=== PATIENT | female | born 1965 | race American Indian/Alaskan Native ===

== ENCOUNTER 2018-08-10 15:32 | Inpatient (IN) | payer BC, MEDICAID ==
[2018-08-10] MEDS ORDERED: Morphine 4 mg/ml ISec IVP STA (17:20)
[2018-08-10] MEDS ORDERED: Dextrose 5%/0.9% NS 1,000 ML IV SCH (17:30)
[2018-08-10 17:57] LABS: PH,URINE 6.5 (4.7-8.0); URINE BILIRUBIN NEGATIVE (NEGATIVE); URINE BLOOD NEGATIVE (NEGATIVE); URINE GLUCOSE (UA) NEGATIVE (NEGATIVE); URINE LEUKOCYTE ESTERASE NEGATIVE Leu/uL (NEGATIVE); URINE PROTEIN NEGATIVE mg/dL (<30 mg/dL); URINE UROBILINOGEN 0.2 E.U./dL (<1 E.U./dL)
--- NOTE | 2018-08-10 17:57 | ED PDOC ---
Arrival/HPI - General Chief Complaint: Syncope Time Seen by Provider: 08/10/18 15:51 Historian: Patient - History of Present Illness Narrative History of Present Illness (Text): 08/10/18 17:25 62 year old female with a past medical history of diabetes, bariatric surgery (01/07), and laparoscopic assisted vaginal hysterectomy 3 weeks ago d/t endometrial cancer, presenting s/p syncopal episodes that occurred 4 days. Patient lives in [place] and was traveling by bus to [place] to stay with family, when she felt lightheaded and dizzy and "started seeing spots" at bus station. Patient was standing and was able to sit down, did not have LOC and stood up a couple minutes later. Before getting on the bus patient felt dizzy again and lost consciousness and does not have much memory around the accident. She thinks that she fell and hit her right cheek, right knee and abdomen. At the time, patient denied EMT care and kept traveling. Patient now complains of "cramping" suprapubic abdominal pain and pressure that is worse when she coughs/sneezes. Pt states pain was improving s/p hysterectomy but has worsened since the fall. Pt was examined by gynecological oncologist 1 week ago and did not have severe abdominal pain. Pt also complains of BELTRE since the fall, diarrhea, and R knee pain. Pt is now unable to bend right knee secondary to pain. Pt is on glipizide and metformin daily, and uses short acting and long acting insulin prn for her diabetes. Pt measures her glucose 2x/day and has been having hypoglycemic episodes measuring from 45-70. Pt states that her diabetes is well controlled after her bariatric surgery and weight loss of 110 lbs, last A1C 2 months ago: 5.9. Pt denies vaginal bleeding, redness or warmth of incision sites, nausea, vomiting, chest pain, calf pain, swelling, dyspnea. Pt denies history of anemia, heart murmurs, CVD, previous syncopal episodes. Time/Duration: < week Symptom Onset: Gradual Symptom Course: Unchanged Activities at Onset: Light Context: Home Past Medical History - Provider Review Nursing Documentation Reviewed: Yes - Endocrine/Metabolic Hx Diabetes Mellitus Type 2: Yes - Psychiatric Hx Substance Use: No - Surgical History Hx Gastric Bypass Surgery: Yes (12/2017) Hx Hysterectomy: Yes (06/2018) Family/Social History - Physician Review Nursing Documentation Reviewed: Yes Family/Social History: Unknown Family HX Smoking Status: Unknown If Ever Smoked Hx Alcohol Use: No Hx Substance Use: No Allergies/Home Meds Allergies/Adverse Reactions: Allergies No Known Allergies Allergy (Verified 08/10/18 16:00) Home Medications: Home Meds Medication Instructions Recorded Confirmed Albuterol HFA [Ventolin HFA 90 1 puff IH PRN PRN 08/10/18 08/10/18 mcg/actuation (8 g)] Atorvastatin [Lipitor] 40 mg PO DAILY 08/10/18 08/10/18 Esomeprazole Magnesium [Nexium] 40 mg PO DAILY 08/10/18 08/10/18 FLUoxetine [Fluoxetine HCl] 40 mg PO DAILY 08/10/18 08/10/18 GlipiZIDE [Glipizide] 10 mg PO DAILY 08/10/18 08/10/18 Insulin Glargine,Hum.rec.anlog 5 - 10 unit SQ PRN PRN 08/10/18 08/10/18 [Basaglar Kwikpen U-100] Insulin Glulisine [Apidra] 1 - 4 unit SQ PRN PRN 08/10/18 08/10/18 Lamotrigine 100 mg PO DAILY 08/10/18 08/10/18 Lisinopril [Zestril] 20 mg PO DAILY 08/10/18 08/10/18 Meloxicam [Mobic] 15 mg PO DAILY 08/10/18 08/10/18 MetFORMIN [glucOPHAGE] 1,000 mg PO DAILY 08/10/18 08/10/18 Misoprostol 200 mcg PO QID 08/10/18 08/10/18 Pregabalin [Lyrica] 225 mg PO BID 08/10/18 08/10/18 Sucralfate [Carafate] 1 gm PO TID 08/10/18 08/10/18 Review of Systems - Physician Review All systems were reviewed & negative as marked: Yes - Review of Systems Constitutional: absent: Fevers Respiratory: absent: SOB, Cough Cardiovascular: absent: Chest Pain, YUSUF Gastrointestinal: Abdominal Pain, Diarrhea. absent: Nausea, Vomiting Musculoskeletal: Arthralgias (right knee pain). absent: Back Pain, Neck Pain Skin: absent: Rash Neurological: Headache. absent: Dizziness Physical Exam Vital Signs Reviewed: Yes Vital Signs Temp Pulse Resp BP Pulse Ox 08/10/18 16:05 98.2 F 84 18 112/76 100 Temperature: Afebrile Blood Pressure: Normal Pulse: Regular Respiratory Rate: Normal Appearance: Positive for: Well-Appearing, Non-Toxic, Comfortable Pain Distress: None Mental Status: Positive for: Alert and Oriented X 3 Finger Stick Blood Glucose: 71 - Systems Exam Head: Present: Atraumatic, Normocephalic Pupils: Present: PERRL Extroacular Muscles: Present: EOMI Conjunctiva: Present: Normal Neck: Present: Normal Range of Motion Respiratory/Chest: Present: Clear to Auscultation, Good Air Exchange. No: Respiratory Distress, Accessory Muscle Use Cardiovascular: Present: Regular Rate and Rhythm, Normal S1, S2. No: Murmurs Abdomen: Present: Tenderness (Diffuse abdominal tenderness. Well healing surgical scars from lasproscopy noted on upper abdomen. No redness or swelling to the area.). No: Distention, Peritoneal Signs Back: Present: Normal Inspection Upper Extremity: Present: Normal Inspection. No: Cyanosis, Edema Lower Extremity: Present: Normal Inspection. No: Edema Neurological: Present: GCS=15, CN II-XII Intact, Speech Normal Skin: Present: Warm, Dry, Normal Color. No: Rashes Psychiatric: Present: Alert, Oriented x 3, Normal Insight, Normal Concentration Medical Decision Making ED Course and Treatment: 08/10/18 17:18 Impression: 52 year old female presents to the Emergency department complaining of abdominal pain s/p syncopal episode 4 days ago. Plan: -- CT of Abdomen/Pelvis -- CT of Head -- EKG -- Labs -- Chest X-ray -- Dextrose -- Morphine -- Zofran -- Urine Culture -- X-ray of bilateral knees -- Urinalysis -- Reassess and disposition Prior Visits: Notes and results from previous visits were reviewed. Progress Notes: FS : 71. EKG : NSR at 83 bpm, with no acute ST changes Chest X-ray : NAD XR b/l knees : +DJD, no fracture CT head : no acute intracranial abnormality, as per [facility]. CT Abdomen/Pelvis CT w/ IV contrast: Post operative changes within the abdomen and pelvis. No suspicious masses or lymphadenopathy or free fluid collection. Status post cholecystectomy. Status post hysterectomy. Clinical correlation advised, as per [facility]. Labs reviewed : d-dimer 265, trop (-), k 3.5, Urinalysis (-). Case d/w Dr. Menendez, agrees with plan for observation for syncope and CTA chest for tomorrow to r/o PE, request patient be given prophylactic dose of lovenox SC. Lovenox SC ordered. Diagnostic results d/w the patient. Advised for the need for further observation for syncope and for CTA chest tomorrow, which the patient agrees to. On reevaluation, patient reports no CP, no shortness of breath, no worsening in abdominal pain. On exam, patient remains awake alert and oriented 3 in no acute distress. - RAD Interpretation Narrative RAD Interpretations (Text): 08/10/18 19:48 CT of Abdomen/Pelvis reviewed by radiologist, shows: FINDINGS: LUNG BASES: The lung bases appear clear. No pleural effusions are seen. LIVER: Unremarkable. GALLBLADDER AND BILE DUCTS: Gallbladder has been surgically removed. PANCREAS: Fatty infiltration. SPLEEN: Unremarkable. ADRENAL GLANDS: Unremarkable. KIDNEYS, URETERS, AND BLADDER: The kidneys appear within normal limits. There is no hydronephrosis or hydroureter. No urinary calculi are seen. STOMACH AND BOWEL: Postsurgical changes are suspected at the region of the stomach with suture material present. There is no bowel obstruction identified. There is no radi ologic evidence of inflammatory bowel disease. APPENDIX: No evidence of acute appendicitis on CT examination. PERITONEUM: No free fluid. No free air. LYMPH NODES: No lymphadenopathy is evident. VASCULATURE: No evidence of abdominal aortic aneurysm. BONES: No aggressive appearing osseous lesion. No acute osseous pathology evident. Hypertrophic and degenerative changes present lumbar spine. The uterus has been surgically removed and a minimal postsurgical changes are seen at the midline of the abdomen. IMPRESSION: Postoperative changes within the abdomen and pelvis. No suspicious mass or lymphadenopathy or free fluid collection. Status post cholecystectomy. Status post hysterectomy. Clinical correlation advised. 08/10/18 19:49 CT of head reviewed by radiologist, shows: FINDINGS: BRAIN No acute intraparenchymal hemorrhage. No mass lesion. No CT evidence for acute territorial infarct. No midline shift or extra-axial collections. VENTRICLES: No hydrocephalus. ORBITS: The orbits are unremarkable. SINUSES AND MASTOIDS: The paranasal sinuses and mastoid air cells are clear. BONES: Small separate ossific density is seen adjacent to the inner table of the skull in the right parietal region and this appears chronic in nature. SOFT TISSUES: Unremarkable. IMPRESSION: No acute intracranial abnormality. Clinical correlation advised. Radiology Orders: 08/10/18 17:19 CHEST ONE VIEW [RAD] Stat KNEES BILATERAL [RAD] Stat 08/10/18 17:20 HEAD W/O CONTRAST [CT] Stat 08/10/18 17:22 ABD & PELVIS IV CONTRAST ONLY [CT] Stat Banquet Supervisor: Radiologist - Medication Orders Current Medication Orders: Dextrose/Sodium Chloride (Dextrose 5%/0.9% Ns 1000 Ml) 1,000 mls @ 200 mls/hr IV .Q5H SYDNEY Morphine Sulfate (Morphine) 4 mg IVP STAT STA Stop: 08/10/18 17:21 Ondansetron HCl (Zofran Inj) 4 mg IVP STAT STA Stop: 08/10/18 17:21 - PA / EXHIBIT SPECIALIST / Resident Statement MD/DO has reviewed & agrees with the documentation as recorded. - Scribe Statement The provider has reviewed the documentation as recorded by the Scribe Shalonda Weathers. All medical record entries made by the Scribe were at my direction and personally dictated by me. I have reviewed the chart and agree that the record accurately reflects my personal performance of the history, physical exam, medical decision making, and the department course for this patient. I have also personally directed, reviewed, and agree with the discharge instructions and disposition. Disposition/Present on Arrival - Present on Arrival Any Indicators Present on Arrival: No History of DVT/PE: No History of Uncontrolled Diabetes: No Urinary Catheter: No History of Decub. Ulcer: No History Surgical Site Infection Following: None - Disposition Have Diagnosis and Disposition been Completed?: Yes Diagnosis: Syncope, Abdominal pain Disposition: HOSPITALIZED Disposition Time: 19:45 Patient Plan: Observation Patient Problems: Current Active Problems Problem Status Onset Abdominal pain Acute Syncope Acute Condition: STABLE Discharge Instructions (ExitCare): Syncope (ED) Forms: Pushkart (Danish)
[2018-08-10 18:02] LABS: URINE APPEARANCE CLEAR (CLEAR); URINE COLOR YELLOW (YELLOW)
[2018-08-10 18:05] LABS: BASO # 0.02 K/mm3 (0.0-2.0); BASO % 0.2 % (0.0-3.0); EOS # 0.4 (0.0-0.7); EOS % 4.2 % (1.5-5.0); GRAN # 2.98 (1.4-6.5); GRAN % 36.1 % (50.0-68.0); HEMOGLOBIN 12.2 g/dL (12.0-16.0); LYMPH # 4.4 (1.2-3.4); LYMPH % 53.2 % (22.0-35.0); MEAN CELL VOLUME 90.3 fl (80.0-105.0); MEAN CORPUSCULAR HEMOGLOBIN 28.8 pg (25.0-35.0); MEAN CORPUSCULAR HGB CONC 31.9 g/dl (31.0-37.0); MEAN PLATELET VOLUME 9.7 fl (7.0-11.0); MONO # 0.5 (0.1-0.6); MONO % 6.3 % (1.0-6.0); RBC 4.24 10^6/uL (3.5-6.1); RED CELL DISTRIBUTION WIDTH 13.9 % (11.5-14.5); WHITE BLOOD COUNT 8.3 10^3/uL (4.5-11.0)
[2018-08-10 18:10] LABS: INR 1.07; PARTIAL THROMBOPLASTIN TIME 32.8 Seconds (25.1-36.5); PROTHROMBIN TIME 12.2 SECONDS (9.4-12.5)
[2018-08-10 18:20] LABS: TROPONIN I < 0.01 ng/mL
[2018-08-10 18:30] LABS: ALB/GLOB RATIO 1.1 (1.1-1.8); ALBUMIN 3.9 g/dL (3.0-4.8); ALT/SGPT 50 U/L (7-56); AST/SGOT 48 U/L (14-36); BLOOD UREA NITROGEN 11 mg/dL (7-21); CALCIUM 8.9 mg/dL (8.4-10.5); GFR NON-AFRICAN AMERICAN > 60
[2018-08-10] MEDS ORDERED: Enoxaparin 120 mg Syringe SC STA (19:55)
[2018-08-10] MEDS ORDERED: Enoxaparin 40 mg Syringe SC SCH (21:00)
[2018-08-10] MEDS ORDERED: Potassium Chloride 20 mEq ER Tab PO STA (21:32)
[2018-08-10 21:36] LABS: URIC ACID 4.7 mg/dL (2.5-6.2)
[2018-08-10 21:50] LABS: BARBITURATES, UR NEGATIVE (NEGATIVE); BENZODIAZEPINES, UR NEGATIVE (NEGATIVE); OPIATES, UR NEGATIVE (NEGATIVE); PHENCYCLIDINE, UR NEGATIVE (NEGATIVE)
[2018-08-10 22:10] LABS: FREE T4 1.08 ng/dL (0.78-2.19); T4 9.6 ug/dL (5.5-11.0)
[2018-08-11 00:41] VITALS: BMI 35.9
[2018-08-11 01:32] LABS: TROPONIN I < 0.01 ng/mL
[2018-08-11 04:53] LABS: BASO # 0.02 K/mm3 (0.0-2.0); BASO % 0.3 % (0.0-3.0); EOS # 0.3 (0.0-0.7); EOS % 4.2 % (1.5-5.0); GRAN # 2.55 (1.4-6.5); GRAN % 33.7 % (50.0-68.0); HEMOGLOBIN 11.8 g/dL (12.0-16.0); LYMPH # 4.3 (1.2-3.4); LYMPH % 56.4 % (22.0-35.0); MEAN CELL VOLUME 90.1 fl (80.0-105.0); MEAN CORPUSCULAR HEMOGLOBIN 29.1 pg (25.0-35.0); MEAN CORPUSCULAR HGB CONC 32.3 g/dl (31.0-37.0); MEAN PLATELET VOLUME 9.4 fl (7.0-11.0); MONO # 0.4 (0.1-0.6); MONO % 5.4 % (1.0-6.0); RBC 4.05 10^6/uL (3.5-6.1); WHITE BLOOD COUNT 7.6 10^3/uL (4.5-11.0)
[2018-08-11 05:05] LABS: ALBUMIN 3.4 g/dL (3.0-4.8); ALT/SGPT 41 U/L (7-56); AST/SGOT 41 U/L (14-36); BILIRUBIN,DIRECT 0.2 mg/dL (0.0-0.4); BLOOD UREA NITROGEN 9 mg/dL (7-21); CALCIUM 9.1 mg/dL (8.4-10.5); GFR NON-AFRICAN AMERICAN > 60; HDL CHOLESTEROL 36 mg/dL (29-60)
[2018-08-11 05:16] LABS: LDL CHOLESTEROL 61 mg/dL (0-129); TROPONIN I < 0.01 ng/mL
[2018-08-11] MEDS: Sodium Chloride 0.45% 1,000 ML IV SCH (06:26)
[2018-08-11] MEDS: Pantoprazole 40 mg EC Tab PO SCH (06:29)
--- NOTE | 2018-08-11 07:37 | HP ---
DATE OF EXAM: 08/10/2018 HISTORY OF PRESENT ILLNESS: The patient is a 52-year-old female who is a resident of [place], is visiting [place] family members. The patient stated that the patient passed out on Friday while traveling from [place] to [place]. The patient passed out on a bus station while on her way to [place], but the patient refused to go to the emergency room at this time. The patient presented since have been visiting her family members in [facility]. The patient presented with complaints of abdominal pain, right hip pain, and right lower extremity pain, and also complained of dizziness, and also complained of syncopal episode 4 to 5 days ago on Friday at a bus station. The patient also reports that pain is described at 8/10 in the abdomen area, in the right hip, and the right knee area. The patient also states that a few weeks ago, the patient had abdominal hysterectomy for diagnosis of endometrial carcinoma. CODE STATUS: Full code. LIVING WILL ADVANCE DIRECTIVE: None. ALLERGIES: NONE. HEIGHT: 5 feet 9 inches. WEIGHT: 243. BODY MASS INDEX: 36. PAST MEDICAL AND SURGICAL HISTORY: History of type 2 diabetes mellitus, history of degenerative joint disease, history of hypertension, history of questionable depression versus history of hyperlipidemia. Past medical history is also significant for obesity; status post gastric bypass surgery in 12/2017, history of laparoscopic abdominal hysterectomy in 06/2018, both surgeries were done in [place]; history of endometrial carcinoma. The patient's past medical history is also significant for history of post bariatric and post geriatric surgery weight loss of more than 110 pound, history of insulin requiring diabetes mellitus, history of gastritis, history of questionable neuropathy. PHYSICAL EXAMINATION: GENERAL: The patient is seen in stretcher #13. The patient was completely alert, awake, responsive. VITAL SIGNS: T-max 98.2, heart rate 84 to 91; telemetry shows normal sinus rhythm, blood pressure 112/76 to 130/89, respirations 18, O2 sat 99% to 100%, the patient is seen lying on the stretcher. HEENT: Head examination normocephalic, atraumatic. HEENT examination shows pinkish pale conjunctivae. Dry oral mucosa. No neck rigidity. CHEST: Kyphosis. LUNGS: Examination shows no audible crackle, rales or wheezing. CARDIOVASCULAR: S1, S2, regular rhythm. Questionable soft systolic murmur, left sternal border, right second intercostal space, left second intercostal space. ABDOMEN: Soft. Positive diffuse voluntary guarding noted. The patient is holding my hand when I am trying to palpate the abdomen. The patient does have positive bowel sound on auscultation. The patient does have multiple laparoscopic surgical scars in the upper and mid and lower abdomen; positive surgical scar of hysterectomy noted. GENITALIA: Female. RECTAL: Deferred. The patient is complaining of right hip, right knee, and right lower extremity pain. No palpable hepatosplenomegaly noted. MUSCULOSKELETAL: Shows a body mass index of 36. NEUROLOGIC: The patient is alert, awake, oriented times 3. The patient was also observed ambulating in the emergency room holding area and the patient ambulated independently from the stretcher to the bathroom. Motor strength is 5/5. There was no neurological deficit noted at this time. DIAGNOSTICS: CBC shows WBC 8.3, hemoglobin and hematocrit of 12.2 and 38.3, platelet 289,000. PT/PTT 12.2/32.8, D-dimer 265. Sodium 142, potassium 3.5, chloride 107, CO2 27, anion gap 12, BUN 11, creatinine 0.7. GFR greater than 60, glucose 90, calcium 8.9, magnesium 2.0. AST 48. Troponin is negative. Urine pH 6.5, specific gravity 1.020, leukocyte esterase negative. The patient had an EKG done, chest x-ray, knee x-ray, head CT, abdominopelvic CT was done in the emergency room, the results of which are reviewed in the ER physician evaluation. EKG shows normal sinus rhythm, questionable left axis deviation, nonspecific ST changes. No old EKG available for comparison. CAT scan of the abdomen and pelvis was reviewed. CAT scan of the head results were reviewed. IMPRESSION: 1. Syncopal episodes times two to four. 2. Abdominal pain. 3. Dizziness. 4. Right hip and knee pain. 5. Status post bariatric surgery in 12/2017. 6. Elevated D-dimer, etiology undetermined. 7. Status post fall. 8. Abdominal pain, hip pain, right lower extremity pain, secondary to fall versus contusion. 9. Degenerative joint disease of the knees. 10. Hepatic steatosis with fatty infiltration of the liver. 11. Postoperative changes of the gastric bypass and bariatric surgery. 12. Degenerative joint disease of the lumbar spine. 13. Hysterectomy with postsurgical changes. 14. Status post cholecystectomy. 15. Right parietal region chronic ossific density. 16. Questionable left axis deviation. 17. Questionable age indeterminate inferior infarct. 18. Recurrent syncopal episode, etiology undetermined. 19. History of gastritis, status post gastric bypass surgery. 20. Diabetic neuropathy. 21. Insulin-requiring diabetes mellitus. 22. Questionable depression. 23. History of hyperlipidemia. 24. Hypertension. 25. Lymphocytosis. 26. Hypokalemia. PLAN: At this time, the patient will be admitted to Telemetry. The patient has been ordered thyroid panel, drug screen, repeat cardiac enzymes, CBC, CMP, LFT, magnesium. The patient has been ordered serial troponin, ESR; urine culture ordered to by the emergency room; hip and pelvic x-rays and lumbar spine x-rays ordered. The patient's current consultation are Neurology and Cardiology. Lyme titers and RPR ordered. The patient is started on Carafate 1 g three times a day, Colace 100 mg three times a day, Ecotrin 81 mg daily, Humalog medium dose sliding scale coverage. The patient has been supplemented with potassium 40 mEq, the patient is resumed on Lamictal 100 mg daily, Lipitor 40 mg daily. The patient is given a dose of Lovenox 110 mg in the emergency room by the ER staff. The patient is started on Lovenox 40 subcu daily from tomorrow. The patient is on Lyrica 225 mg twice a day, Mobic 15 mg daily, the patient received a dose of morphine 4 mg IV, the patient is on Protonix 40 mg daily, Prozac 40 mg daily, lisinopril 20 mg daily, Zofran 4 mg IV every 4 hours p.r.n. The patient is ordered carotid Doppler, MRI, MRA of the brain, EEG, echo with Doppler ordered. Consistent carbohydrate diet ordered. The patient is put on neuro checks, head of the bed at 30 degrees, out of bed with assistance. Physical therapy and occupational therapy ordered. At present, the patient was seen in the emergency room bed 15; the patient seen and evaluated, examined. All detail discussed and explained to the patient. The patient was explained about the details of her diagnoses, tests results. Need for further diagnostic and therapeutic intervention was extensively explained to the patient at length and all questions concerned answered to her satisfaction. At present, the patient is going to be admitted to telemetry for further treatment plan and management. Dictated and electronically signed, not read. Dustin Menendez MD
[2018-08-11] MEDS: Insulin Lispro (humaLOG) MEDIUM Coverage SC SCH ×3 (08:00→16:59)
[2018-08-11] MEDS ORDERED: Gadodiamide 287 MG/ML VIAL (20ML) IV ONE (08:44)
--- NOTE | 2018-08-11 09:18 | CT ---
Date of service: 08/10/2018 PROCEDURE: CT HEAD WITHOUT CONTRAST. HISTORY: syncope COMPARISON: None available. TECHNIQUE: Axial computed tomography images were obtained through the head/brain without intravenous contrast. Radiation dose: Total exam DLP = 899.08 mGy-cm. This CT exam was performed using one or more of the following dose reduction techniques: Automated exposure control, adjustment of the mA and/or kV according to patient size, and/or use of iterative reconstruction technique. FINDINGS: HEMORRHAGE: No intracranial hemorrhage. BRAIN: No mass effect or edema. No atrophy or chronic microvascular ischemic changes. VENTRICLES: Unremarkable. No hydrocephalus. CALVARIUM: Unremarkable. PARANASAL SINUSES: Unremarkable as visualized. No significant inflammatory changes. MASTOID AIR CELLS: Unremarkable as visualized. No inflammatory changes. OTHER FINDINGS: The report concurs with the preliminary [facility] report IMPRESSION: No acute intracranial findings
--- NOTE | 2018-08-11 09:20 | RAD ---
Date of service: 08/10/2018 PROCEDURE: BILATERAL HIPS WITH PELVIS RADIOGRAPHS HISTORY: PAIN/SYNCOPE COMPARISON: No prior comparison available. TECHNIQUE: Frontal views of the pelvis and bilateral hip joints been submitted with bilateral hip frog-leg lateral projections as well. FINDINGS: No acute fracture or dislocation of the bilateral hip joints is appreciated. No destructive bony lesion appreciated throughout. No fracture of the pelvic ring is identified either. There is advanced degenerative joint disease of lateral hip joints including articular cortical sclerosis and osteophyte development and limited subchondral cyst formation as well. Mild degenerative sacroiliac joint changes are identified with the sacrum otherwise intact. Pubic symphysis appears intact swells remaining pubic bones. Incidental advanced facet degenerative changes seen at the inferior lumbar spine and excreted iodinated contrast material is identified mildly distending the urinary bladder. IMPRESSION: No acute fracture dislocation throughout the bilateral hip joints as well as the pelvic ring. Relatively advanced osteoarthritis seen the bilateral hip joints symmetrically, mild at the bilateral sacroiliac joints.
--- NOTE | 2018-08-11 09:23 | CT ---
Date of service: 08/10/2018 PROCEDURE: CT Abdomen and Pelvis with contrast HISTORY: pain, s/p hysterectomy COMPARISON: None. TECHNIQUE: Contrast dose: 141 cc of Visipaque Radiation dose: Total exam DLP = 1265.2 mGy-cm. This CT exam was performed using one or more of the following dose reduction techniques: Automated exposure control, adjustment of the mA and/or kV according to patient size, and/or use of iterative reconstruction technique. FINDINGS: LOWER THORAX: Unremarkable. LIVER: Unremarkable. No gross lesion or ductal dilatation. Fatty infiltration of the liver GALLBLADDER AND BILE DUCTS: Gallbladder removed PANCREAS: Pancreatic atrophy with fatty replacement SPLEEN: Unremarkable. ADRENALS: Unremarkable. No mass. KIDNEYS AND URETERS: Unremarkable. No hydronephrosis. No solid mass. VASCULATURE: Unremarkable. No aortic aneurysm. No aortic atherosclerotic calcification or mural plaque present. BOWEL: Unremarkable. No obstruction. No gross mural thickening. Suture line in the stomach APPENDIX: Normal appendix. PERITONEUM: Unremarkable. No free fluid. No free air. LYMPH NODES: Unremarkable. No enlarged lymph nodes. BLADDER: Unremarkable. REPRODUCTIVE: Hysterectomy BONES: No acute fracture. OTHER FINDINGS: The report concurs with the preliminary [facility] report IMPRESSION: Unremarkable contrast enhanced CT of the abdomen and pelvis.
--- NOTE | 2018-08-11 09:25 | RAD ---
Date of service: 08/10/2018 PROCEDURE: Radiographs of the Lumbar Spine. HISTORY: SYNCOPE/FALL COMPARISON: No prior. FINDINGS: BONES: Normal lumbar curvature. No fracture or spondylolisthesis appreciable. Mild to moderate multilevel spondylosis appreciated diffusely. No definite destructive bony lesion identified. Multilevel facet joint degenerative changes are appreciated increasingly from superior to inferior levels. No definite destructive bony lesion appreciated. Incidental note is made of excreted iodinated contrast material at the bilateral renal collecting systems, ureters and urinary bladder. Surgical clips identified in the right upper quadrant abdomen. DISC SPACES: As above. OTHER FINDINGS: None. IMPRESSION: No definite acute fracture or spondylolisthesis identified. Multilevel degenerative disease appears [id number] severity with multilevel facet joint degenerative arthropathy also present.
--- NOTE | 2018-08-11 09:36 | CARD ---
APPROVED REPORT Date of service: 08/10/2018 EKG Measurement Heart [id number] <Conclusion> Normal sinus rhythm Low voltage QRS Inferior infarct, age undetermined PRWP V - 6, probably lead placement
[2018-08-11] MEDS ORDERED: PREGABALIN 225 MG PO SCH (10:00)
--- NOTE | 2018-08-11 10:35 | RAD ---
Date of service: 08/10/2018 PROCEDURE: CHEST RADIOGRAPH, 1 VIEW HISTORY: pain COMPARISON: None available. FINDINGS: LUNGS: Clear. PLEURA: No pneumothorax or pleural fluid seen. CARDIOVASCULAR: No aortic atherosclerotic calcification present. Normal. OSSEOUS STRUCTURES: No significant abnormalities. VISUALIZED UPPER ABDOMEN: Normal. OTHER FINDINGS: None. IMPRESSION: No active disease.
[2018-08-11] MEDS: Enoxaparin 40 mg Syringe SC SCH ×2 (10:40→17:59)
--- NOTE | 2018-08-11 10:55 | PN ---
DATE: 08/11/2018 LOCATION: The patient is in room 572 bed one. SUBJECTIVE: Though patient was advised by the ER staff to be admitted to Telemetry because of syncope, but the patient was admitted to 572 without my knowledge. The patient's overall nurse's notes were reviewed. No adverse events were documented. According to the nurses' note, the patient ambulated independently in the room and to the bathroom. No syncopal episodes were documented. REVIEW OF SYSTEMS: A 14 systems review is the patient is complaining of some hip pain, pelvic, lower abdominal pain, surgical site pain. Denies any nausea, vomiting, diarrhea, denies any chest pain. Denies any syncope. OBJECTIVE: VITAL SIGNS: T-max 98.2, pulse 84 to 91, blood pressure 112/76, 130/89, respirations 18, O2 sat 98% to 100%. HEENT: Head: Normocephalic, atraumatic. HEENT examination shows pinkish pale conjunctivae. Anicteric sclerae, dry oral mucosa. No neck rigidity. CHEST: Kyphosis. LUNGS: Shows no audible crackle, rales or wheezing. CARDIOVASCULAR: S1, S2, regular rhythm. ABDOMEN: Soft. Positive bowel sounds. Multiple laparoscopic surgical scar noted. Positive diffuse voluntary guarding noted. No appreciable palpable hepatosplenomegaly noted. GENITALIA: Female. RECTAL: Deferred. EXTREMITIES: Shows no pitting edema, no calf tenderness, no Homans' sign. MUSCULOSKELETAL: As per the body mass index of the [facility]. Gait examination according to the nurses have been independent. DIAGNOSTICS: 08/11, WBC 7.6, hemoglobin/hematocrit 11.8, 36.5, platelet 261,000. ESR is 26, D-dimer was elevated at 265. The patient's CTA is still pending. Sodium 142, potassium 3.7, chloride 108, CO2 28, BUN 9, creatinine 0.6, glucose 99, calcium 9.1, phosphorus 1.8, magnesium 2.1. AST is 41. All 3 sets of troponin is negative. Urinalysis, urine drug screen is negative, TSH is 0.92, total T4 9.6, free T4 1.08. IMPRESSION AND PLAN: 1. Syncope with history of recurrent syncope, etiology undetermined. 2. Questionable vasovagal syncope. 3. Normocytic anemia. 4. Mildly elevated erythrocyte sedimentation rate. 5. Mildly elevated D-dimer. 6. Elevated AST. 7. History of recent laparoscopic abdominal hysterectomy with history of endometrial carcinoma as per patient. 8. History of gastric bypass surgery in 12/2017. 9. History of obesity. 10. History of hypertension, insulin-requiring diabetes mellitus, history of diabetic neuropathy, history of hypertension and hyperlipidemia. 1. Syncopal episodes times two to four. 2. Abdominal pain. 3. Dizziness. 4. Right hip and knee pain. 5. Status post bariatric surgery in 12/2017. 6. Elevated D-dimer, etiology undetermined. 7. Status post fall. 8. Abdominal pain, hip pain, right lower extremity pain, secondary to fall versus contusion. 9. Degenerative joint disease of the knees. 10. Hepatic steatosis with fatty infiltration of the liver. 11. Postoperative changes of the gastric bypass and bariatric surgery. 12. Degenerative joint disease of the lumbar spine. 13. Hysterectomy with postsurgical changes. 14. Status post cholecystectomy. 15. Right parietal region chronic ossific density. 16. Questionable left axis deviation. 17. Questionable age indeterminate inferior infarct. 18. Recurrent syncopal episode, etiology undetermined. 19. History of gastritis, status post gastric bypass surgery. 20. Diabetic neuropathy. 21. Insulin-requiring diabetes mellitus. 22. Questionable depression. 23. History of hyperlipidemia. 24. Hypertension. 25. Lymphocytosis. 26. Hypokalemia. PLAN: At this time, we are awaiting for the official report of the patient's CT scan of the abdomen and pelvis. We are awaiting for the official report of the patient's knee x-rays, hip x-ray, pelvic x-rays and lumbosacral spine x-rays. We are waiting for Cardiology, Neurology evaluation, MRI, MRA of the brain, carotid ultrasound, EEG, echo with Doppler ordered, still awaiting for those tests to be done. The patient has been awaiting for a CTA of the chest for elevated D-dimer which will be reviewed when available. The patient will be continued on both GI, DVT prophylaxis. The patient will be continued on neuro checks. The patient will be continued on all the medications as per the MAR. The patient has been started on aspirin and statins. The patient's antihypertensive has been ordered. The patient has been ordered sliding-scale fingerstick blood sugar coverage. Hemoglobin A1c and other diagnostic data is pending, which will be reviewed when available. Once the patient's all the diagnostic data is available and when the results are available for all the diagnostic data, the patient's further disposition will be decided after final recommendation by Cardiology, Neurology and as per the results of the diagnostic data. The patient has been updated about her condition, diagnosis at length and all questions concerned answered. Dictated and electronically signed, not read. Dustin Menendez MD MTDD
--- NOTE | 2018-08-11 11:23 | MRI ---
Date of service: 08/11/2018 PROCEDURE: MRI BRAIN WITH AND WITHOUT CONTRAST HISTORY: SYNCOPE COMPARISON: None available. TECHNIQUE: Multiplanar, multisequence MR images of the brain were obtained with and without intravenous contrast enhancement. 20 cc of Omniscan FINDINGS: HEMORRHAGE: None DWI: No evidence of an acute or early subacute infarction. BRAIN PARENCHYMA: No mass,mass effect or edema. No atrophy or chronic microvascular ischemic changes. ENHANCEMENT: No abnormal intracranial enhancement. VENTRICLES: Unremarkable. No hydrocephalus. CRANIUM: Unremarkable. ORBITS: Grossly unremarkable. PARANASAL SINUSES/MASTOIDS: Clear VASCULAR SYSTEM: Skull base flow voids intact. OTHER FINDINGS: There is an enlarged partially empty sella. This represents a normal variation. IMPRESSION: Unremarkable pre and post contrast enhanced MRI of the brain.
--- NOTE | 2018-08-11 11:26 | MRI ---
Date of service: 08/11/2018 PROCEDURE: Magnetic Resonance Angiography Brain HISTORY: SYNCOPE COMPARISON: None available. TECHNIQUE: 3D time of flight MR angiography of the intracranial arteries was performed. Rotating maximum intensity projection images were generated. FINDINGS: INTERNAL CAROTID ARTERIES: Unremarkable. The skull base, petrous, cavernous and supraclinoid segments are bilaterally widely patient. ANTERIOR CEREBRAL ARTERIES: Unremarkable. A1 and A2 segments are widely patent. Smaller distal branches unremarkable, as visualized. MIDDLE CEREBRAL ARTERIES: Unremarkable. M1 and M2 segments are widely patent. Perisylvian branches grossly symmetric. POSTERIOR CIRCULATION: Basilar Artery: Unremarkable. Distal Vertebral Arteries: Unremarkable. Posterior Cerebral Arteries: Unremarkable. Posterior Inferior Cerebellar Arteries: Unremarkable. ANEURYSM/ VASCULAR MALFORMATIONS: None. OTHER FINDINGS: None. IMPRESSION: Unremarkable MR angiography of the brain.
--- NOTE | 2018-08-11 12:50 | RAD ---
Date of service: 08/10/2018 PROCEDURE: Bilateral Knee Radiographs. HISTORY: pain COMPARISON: None. FINDINGS: BONES: No acute fracture dislocation identified, bilaterally. JOINTS: Symmetric severe medial femorotibial compartment joint space narrowing is identified as well as articular cortical sclerosis and osteophyte development. Similar changes present at the patellofemoral articulations bilaterally with the lateral femorotibial compartment least affected. Extensive heterotopic bone formation is appreciated possibly within the left suprasellar bursa may reflect synovial osteochondromatosis or PVNS. There is limited possibility this is posttraumatic. SOFT TISSUES: Extracapsular soft tissues diffusely unremarkable bilaterally. JOINT EFFUSION: Right Knee: None. Left Knee: None. OTHER FINDINGS: None. IMPRESSION: Advanced tricompartmental osteoarthritis is equivalent at both these. Calcifications at the left suprasellar bursa region may reflect posttraumatic change, synovial osteochondromatosis or PVNS. Further clinical correlation is recommended.
--- NOTE | 2018-08-11 14:17 | CARD ---
APPROVED REPORT Date of service: 08/11/2018 EKG Measurement Heart [id number] [id number] <Conclusion> Normal sinus rhythm Left axis deviation PRWP Mild J-point elevations 1, AVL
[2018-08-11 17:11] LABS: LYME IGG NEGATIVE (NEGATIVE)
[2018-08-11 17:14] LABS: LYME IGM NEGATIVE (NEGATIVE)
[2018-08-11 17:15] LABS: RAPID PLASMA REAGIN NONREACTIVE (NONREACTIVE)
--- NOTE | 2018-08-11 18:04 | CARD ---
APPROVED REPORT Date of service: 08/11/2018 EXAM: Two-dimensional and M-mode echocardiogram with Doppler and color Doppler. INDICATION Syncope 2D DIMENSIONS Left Atrium (2D)4.1 (1.6-4.0cm)IVSd1.0 (0.7-1.1cm) LVDd4.3 (3.9-5.9cm)PWd1.0 (0.7-1.1cm) LVDs3.1 (2.5-4.0cm)FS (%) 27.5 % LVEF (%)53.8 (>50%) M-Mode DIMENSIONS Aortic Root3.20 (2.2-3.7cm)Aortic Cusp Exc.1.90 (1.5-2.0cm) Aortic Valve AoV Peak Zphuegzb721.0cm/Bruce Peak GR.7mmHg Mitral Valve MV E Ltcydvhj54.5cm/sMV A Bsxijfaq94.4cm/sE/A ratio0.8 TDI Lateral E' Peak V11.30cm/sMedial E' Peak V7.80cm/sE/Lateral E'6.6 E/Medial E'9.6 Pulmonary Valve PV Peak Nzhbcwxh35.8cm/sPV Peak Grad.1mmHg Tricuspid Valve TR Peak Mjpvynsu120au/sRAP TSYAXYQN51laIwKW Peak Gr.5mmHg OOZK20wkGx LEFT VENTRICLE The left ventricle is normal size. There is normal left ventricular wall thickness. The left ventricular function is normal. The left ventricular ejection fraction is within the normal range. There is normal LV segmental wall motion. RIGHT VENTRICLE The right ventricle is normal size. The right ventricular systolic function is normal. ATRIA The left atrium is mildly dilated. The right atrium size is normal. The interatrial septum is intact with no evidence for an atrial septal defect. AORTIC VALVE The aortic valve is normal in structure. No aortic regurgitation is present. There is no aortic valvular stenosis. MITRAL VALVE The mitral valve is normal in structure. There is no mitral valve regurgitation noted. TRICUSPID VALVE The tricuspid valve is normal in structure. The tricuspid valve is normal in structure. There is trace tricuspid regurgitation. PULMONIC VALVE The pulmonary valve is normal in structure. GREAT VESSELS The aortic root is normal in size. The IVC is normal in size and collapses >50% with inspiration. PERICARDIAL EFFUSION There is no pleural effusion. There is no pericardial effusion. <Conclusion> Mildly dilated LA. Normal LV size and systolic function. No significant valvular abnormalities noted.
[2018-08-11 18:23] LABS: URINE BILIRUBIN NEGATIVE (NEGATIVE); URINE BLOOD LARGE (NEGATIVE); URINE GLUCOSE (UA) NEGATIVE (NEGATIVE); URINE LEUKOCYTE ESTERASE NEGATIVE Leu/uL (NEGATIVE); URINE PROTEIN TRACE mg/dL (<30 mg/dL); URINE UROBILINOGEN 0.2 E.U./dL (<1 E.U./dL)
[2018-08-11 18:24] LABS: URINE APPEARANCE TURBID (CLEAR); URINE COLOR YELLOW (YELLOW)
[2018-08-11 18:29] LABS: URINE CALCIUM OXALATE CRYSTALS FEW /hpf; URINE WBC 0 - 2 /hpf (0-6)
--- NOTE | 2018-08-11 19:49 | CON ---
DATE OF CONSULTATION: 08/11/2018 HISTORY: The patient is a 52-year-old woman, who is from [place], who experienced several episodes of syncope while on the bus. No previous syncopal episodes in the past. No seizure disorder. The patient's past medical history is free of cardiac history. She denies angina, denies shortness of breath. PAST MEDICAL HISTORY: History of hypertension, diabetes mellitus, and marked obesity, which she has been treated with bariatric surgery. PAST SURGICAL HISTORY: She recently in [place] underwent laparoscopic surgery for a vaginal hysterectomy 3 weeks ago. SOCIAL HISTORY: The patient denies smoking. REVIEW OF SYSTEMS: A 14-point review of systems is reviewed in detail. No cardiac issues were elicited. PHYSICAL EXAMINATION: VITAL SIGNS: Blood pressure is 115/76. There are no orthostatic changes. Heart rate is in the 80s. NECK: Negative JVD. LUNGS: Without rales. HEART: S1, S2. EXTREMITIES: Without edema. LABORATORY DATA: EKG is normal sinus rhythm and unremarkable. Troponins are negative x2. Glucose varies from the 90s to 130s. Hemoglobin is 11.8. Preliminary echocardiogram reveals good LV function with no LV outflow obstruction. IMPRESSION: 1. Syncopal episodes on [place]. 2. Hypoglycemia would be a potential cause. 3. No cardiac cause of her syncope can be identified. 4. Diabetes mellitus. 5. Hypertension. 6. Status post bariatric surgery. 7. Status post vaginal hysterectomy 3 weeks ago. PLAN: Given these findings, I agree with continued IV hydration. Neurologic workup is continuing. Michael Wan MD
[2018-08-11] MEDS ORDERED: Iodixanol 320 MG/ML 100 ML BOTTLE IV ONE (19:53)
--- NOTE | 2018-08-11 22:10 | US ---
PROCEDURE: Bilateral carotid artery duplex ultrasound HISTORY: Carotid stenosis PHYSICIAN(S): Michael Benitez MD. TECHNIQUE: Duplex sonography and color-flow Doppler were used to evaluate the carotid bifurcations and limited segments of the vertebral arteries bilaterally. FINDINGS: There is mild smooth hypoechoic plaque noted at the carotid bifurcations bilaterally. The peak systolic velocity in the proximal right internal carotid artery is 68 cm/sec. This corresponds to a 20 to 39% proximal right ICA stenosis. Normal systolic velocities are noted in the proximal right external carotid artery. There is antegrade flow in the right vertebral artery. The peak systolic velocity in the proximal left internal carotid artery is 103 cm/sec. This corresponds to a 20 to 39% proximal left ICA stenosis. Normal systolic velocities are noted in the proximal left external carotid artery. There is antegrade flow in the left vertebral artery. IMPRESSION: 1. Bilateral 20-39% proximal ICA stenoses. 2. Antegrade flow in both vertebral arteries.
[2018-08-12] MEDS: Sodium Chloride 0.45% 1,000 ML IV SCH (02:17)
[2018-08-12] MEDS: Pantoprazole 40 mg EC Tab PO SCH (06:17)
[2018-08-12] MEDS: Insulin Lispro (humaLOG) MEDIUM Coverage SC SCH ×3 (07:30→16:21)
--- NOTE | 2018-08-12 07:52 | CON ---
DATE: 08/11/2018 CHIEF COMPLAINT: Syncope. HISTORY OF PRESENT ILLNESS: She is a 52-year-old woman with history of type 2 diabetes, bariatric surgery on 01/07/2018, laparoscopic-assisted vaginal hysterectomy 2 weeks ago, diagnosed with endometrial cancer, presenting with syncopal episodes that occurred a few days ago which she was in [place]. She was traveling on a bus, ____ where she felt lightheaded, started to see spots in terms of blurry vision at the bus station and now was standing and was able to sit down, but now stood up, ____, but then stood up ____ a few minutes ago. There is no bowel and bladder incontinence. She has had hypoglycemic episodes in the past that she mentions. A1c is within normal limits. Her B12 level is normal. Currently, her physical exam showed no acute intracranial abnormalities, except some mild bowel and bladder peripheral neuropathy. MRI of the brain and MRA of the head are unremarkable. Carotid Doppler exam is still pending. She has history of sleep deprivation, that she mentions only sleeps 3 hours of sleep at night. PAST MEDICAL HISTORY: As above. ALLERGIES: NO KNOWN DRUG ALLERGIES. FAMILY HISTORY: Text. SOCIAL HISTORY: No illicit drug use, smoking, or EtOH abuse. REVIEW OF SYSTEMS: Fourteen-point review of systems is as per HPI. PHYSICAL EXAMINATION GENERAL: The patient is sitting up in bed, in no acute distress. VITAL SIGNS: Temperature is 97.9, pulse rate 55, blood pressure 150/70, respiratory rate 20, oxygen saturation 98% on room air. HEENT: She is atraumatic, normocephalic. PERRLA. Extraocular muscles intact. NECK: Supple. No JVD. No adenopathy. LUNGS: Clear to auscultation. No adventitious sounds. HEART: S1, S2 normal rate and rhythm. No murmurs, rubs, or gallops. ABDOMEN: Soft, nontender, nondistended. Bowel sounds present. EXTREMITIES: No clubbing, no cyanosis. Peripheral pulses are 2+ bilaterally. NEUROLOGIC: The patient is alert and oriented to person, place, month, and year. Speech without any errors. Cranial nerves II through XII intact. Motor exam: Moves all extremities equally. No pronator drift seen. Sensory exam: Decreased light touch and pinprick up to the ankles bilaterally. Decreased vibration of the toes. DTRs are 2+ throughout. Coordination: Unvfcj-na-uxhm intact. No dysmetria noted. LABORATORY DATA: Current labs: Sodium is 142, potassium 3.7, chloride 108, carbon dioxide 28, BUN of 9, creatinine 1.2, random glucose 79, A1c of 5.9, 168 B12. IMPRESSION: Syncope, most likely vasovagal, triggered by sleep deprivation and poor hydration. Orthostatic vital signs are negative. At the time, we will hold off on ____ since her MRI of the brain and MRA of the head are unremarkable. Carotid Doppler results are currently pending. She can follow up as an outpatient towards the end of her EEG. Néstor Chow MD
[2018-08-12 08:17] LABS: BASO # 0.02 K/mm3 (0.0-2.0); BASO % 0.4 % (0.0-3.0); EOS # 0.3 (0.0-0.7); EOS % 6.6 % (1.5-5.0); GRAN # 1.35 (1.4-6.5); GRAN % 29.6 % (50.0-68.0); HEMOGLOBIN 11.5 g/dL (12.0-16.0); LYMPH # 2.6 (1.2-3.4); LYMPH % 55.9 % (22.0-35.0); MEAN CELL VOLUME 90.7 fl (80.0-105.0); MEAN CORPUSCULAR HGB CONC 31.9 g/dl (31.0-37.0); MEAN PLATELET VOLUME 9.6 fl (7.0-11.0); MONO # 0.3 (0.1-0.6); MONO % 7.5 % (1.0-6.0); RBC 3.97 10^6/uL (3.5-6.1); WHITE BLOOD COUNT 4.6 10^3/uL (4.5-11.0)
[2018-08-12 08:33] LABS: ALB/GLOB RATIO 1.1 (1.1-1.8); ALBUMIN 3.5 g/dL (3.0-4.8); ALT/SGPT 39 U/L (7-56); AST/SGOT 50 U/L (14-36); BILIRUBIN,DIRECT 0.2 mg/dL (0.0-0.4); BLOOD UREA NITROGEN 8 mg/dL (7-21); CALCIUM 9.2 mg/dL (8.4-10.5); GFR NON-AFRICAN AMERICAN > 60
--- NOTE | 2018-08-12 08:39 | CT ---
Date of service: 08/11/2018 PROCEDURE: CT Chest with contrast (Pulmonary Angiogram) HISTORY: SYNCOPE/ELEVATED DIMER COMPARISON: None available. TECHNIQUE: Axial computed tomography images were obtained of the chest in the pulmonary arterial phase of enhancement. Coronal and sagittal reformatted images were created and reviewed. Intravenous contrast dose: 86 cc Visipaque 320. Mean Hounsfield value in the main pulmonary artery: 283.50 Radiation dose: Total exam DLP = 493.27 mGy-cm. This CT exam was performed using one or more of the following dose reduction techniques: Automated exposure control, adjustment of the mA and/or kV according to patient size, and/or use of iterative reconstruction technique. FINDINGS: PULMONARY ARTERIES: Unremarkable. No pulmonary embolism. AORTA: No acute findings. No thoracic aortic aneurysm. No atherosclerotic calcification or mural plaque present. LUNGS: Unremarkable. No nodule, mass or pulmonary consolidation. PLEURAL SPACES: Unremarkable. No effusion or pneumothorax. HEART: Unremarkable. No cardiomegaly. No significant pericardial effusion. LYMPH NODES: No lymphadenopathy. BONES, CHEST WALL: Unremarkable. No fracture or destructive lesion OTHER FINDINGS: Postoperative changes related to gastric surgery and cholecystectomy. IMPRESSION: Unremarkable CT pulmonary angiogram. No pulmonary embolus. Concordant results (preliminary interpretation) provided by [email or web address]. Procedure Completed: 20:30. Preliminary Report: Dictated and Authenticated: 21:37 Final Interpretation: 08:35 August 12, 2018
[2018-08-12 10:01] LABS: FRUCTOSAMINE 214 umol/L (190-270)
--- NOTE | 2018-08-12 10:24 | PN ---
DATE: 08/12/2018 SUBJECTIVE: The patient is asymptomatic and wants to go home. PHYSICAL EXAMINATION: VITAL SIGNS: Blood pressure 122/76, heart rates in the 60s. NECK: Negative JVD. LUNGS: Without rales. HEART: S1, S2. EXTREMITIES: Without edema. LABORATORY DATA: BUN and creatinine are unremarkable. The glucose is 103 this morning. Hemoglobin is 11.5. Echocardiogram shows no LV outflow obstruction with good ejection fraction. CT scan shows no pulmonary embolism. Carotid ultrasound carotid shows no critical lesions. IMPRESSION 1. No cardiac cause of her syncope has been identified. 2. Diabetes mellitus. 3. Hypertension. 4. Hypercholesterolemia. Given these findings, I have discussed with the patient about the possibility of transient hypoglycemia as a cause of her syncopal episode. She will follow up with her doctor to adjust her insulin and diabetic medications. Michael Wan MD
[2018-08-12] MEDS: Enoxaparin 40 mg Syringe SC SCH (10:26)
--- NOTE | 2018-08-12 13:55 | CARD ---
APPROVED REPORT Date of service: 08/12/2018 EKG Measurement Heart [id number] AL [id number] <Conclusion> Normal sinus rhythm PRWP V 1 - 4 LAD
[2018-08-12] MEDS: Cefepime 1gm in NS 100ml 1 GM/100 ML BAG IVPB SCH ×2 (14:45→21:29)
[2018-08-12] MEDS ORDERED: Potassium Chloride 20 mEq ER Tab PO ONE (17:30)
[2018-08-12 22:45] VITALS: RESP 20
[2018-08-13] MEDS: Cefepime 1gm in NS 100ml 1 GM/100 ML BAG IVPB SCH ×3 (06:28→21:50)
[2018-08-13] MEDS: Pantoprazole 40 mg EC Tab PO SCH (06:28)
[2018-08-13] MEDS: Sodium Chloride 0.45% 1,000 ML IV SCH ×3 (06:29→14:45)
[2018-08-13 07:53] LABS: ALBUMIN 3.3 g/dL (3.0-4.8); ALT/SGPT 45 U/L (7-56); AST/SGOT 52 U/L (14-36); BILIRUBIN,DIRECT 0.5 mg/dL (0.0-0.4); BLOOD UREA NITROGEN 8 mg/dL (7-21); CALCIUM 8.8 mg/dL (8.4-10.5); GFR NON-AFRICAN AMERICAN > 60
[2018-08-13] MEDS ORDERED: Bisacodyl 5mg EC Tab PO ONE (09:15)
[2018-08-13] MEDS: Insulin Lispro (humaLOG) MEDIUM Coverage SC SCH ×3 (10:10→17:36)
--- NOTE | 2018-08-13 17:00 | PN ---
DATE: 08/13/2018 SUBJECTIVE: The patient is seen in room 572, bed 1. The patient is lying in the bed. The patient is comfortable. Watching videos on her phone. Overnight nurse's notes were reviewed. The patient was out of bed ad oziel. The patient reports less abdominal pain. The patient denies any nausea, vomiting, diarrhea. Denies any syncope. Denies any loss of consciousness. REVIEW OF SYSTEMS: Fourteen system review was done, pertinent positive and negative dictated above. PHYSICAL EXAMINATION: VITAL SIGNS: T-max 98.4, pulse 73, blood pressure 114/70, respirations 20, O2 sat 97%. GENERAL: The patient is seen lying in the bed. HEENT: Head examination normocephalic, atraumatic. HEENT examination shows pinkish conjunctivae. Anicteric sclerae. No oropharyngeal lesion. No neck rigidity. CHEST: Kyphosis. LUNGS: Shows no audible crackles, rales or wheezing. CARDIOVASCULAR: S1 and S2. ABDOMEN: Soft. Positive bowel sounds. Multiple laparoscopic surgical scars noted. GENITALIA: Female. RECTAL: Deferred. EXTREMITY: Shows no pitting edema, no calf tenderness, no Homans' sign. NEUROLOGICAL: The patient is alert, awake, oriented x3. She is able to move upper and lower extremity without assistance. Gait examination is independent. VASCULAR: Palpable pulses. PSYCHIATRIC: Negative for anxiety, depression. Negative for suicidal or homicidal ideation. Negative for auditory or visual hallucination. MUSCULOSKELETAL: Shows a body mass index of 36. DIAGNOSTICS: On 08/13/2018, sodium 140, potassium 3.7, chloride 107, CO2 of 27, anion gap 10, BUN 8, creatinine 0.6, GFR greater than 60. Glucose 119, 119, 109, 143, 135. Calcium 8.8, phosphorus 4.4, magnesium 2. LFT shows an AST of 52. Urine culture from 08/10/2018, Proteus mirabilis. Repeat urine culture from 08/11/2018 is gram-negative skip. IMPRESSION AND PLAN: 1. Syncope, etiology undetermined versus vasovagal syncope. 2. Transient hypotension. 3. Proteus mirabilis and gram-negative persistent urinary tract infection. 4. Normocytic anemia with lymphocytosis. 5. Elevated erythrocyte sedimentation rate. 6. Elevated D-dimer. 7. Well-controlled insulin-requiring diabetes mellitus with hemoglobin A1c of 5.9 and fructosamine of 214. 8. Elevated C-reactive protein of 3.3. 9. Proteus mirabilis and gram-negative skip urinary tract infection with proteinuria, microscopic hematuria, ketonuria, bacteriuria and possible nephrolithiasis with calcium oxalate crystals in the urine. 10. Bilateral 20-39% internal carotid artery stenosis. 11. Left axis deviation. 12. Left ventricular ejection fraction of 54%. 13. Multilevel degenerative disk disease and joint disease of the lumbar spine with multilevel facet joint degenerative joint disease. 14. Advanced degenerative joint disease of both hips with articular cortical sclerosis and osteophyte development and subchondral cyst formation with degenerative joint disease of the sacroiliac joint. 15. Advanced tricompartmental ortho arthritis of both knees with left suprapatellar bursa calcification. 16. Syncope, etiology undetermined. 17. Most likely vasovagal syncope, probably secondary to sleep deprivation and poor hydration. 1. Syncope, etiology undetermined, probably vasovagal secondary to sleep deprivation and poor hydration. 2. Possible hypoglycemia. 3. Status post bariatric surgery. 4. Status post abdominal hysterectomy. 5. History of endometrial carcinoma. 6. Transient hypotension. 7. Mild normocytic anemia with lymphocytosis. 8. Mildly elevated erythrocyte sedimentation rate. 9. Elevated D-dimer. 10. Mild hyperphosphatemia. 11. Elevated AST, etiology undetermined. 12. Well-controlled insulin-requiring diabetes mellitus with hemoglobin A1c of 5.9 and fructosamine of 214. 13. Elevated C-reactive protein of greater than 3. 14. Escherichia coli. 15. Gram-negative skip, urinary tract infection with proteinuria, ketonuria, microscopic hematuria, and questionable and possible nephrolithiasis with calcium oxalate crystal. 16. Bilateral internal carotid artery 20%-39% stenosis. 17. Gram-negative skip, urinary tract infection. 18. Postoperative changes related to gastric surgery and cholecystectomy. 19. Multilevel lumbar spine degenerative disk disease with facet joint arthropathy. 20. Advanced osteoarthritis of both hips with bilateral sacroiliac joint arthritis. 21. Postsurgical postoperative abdominal pain. 22. Hepatic steatosis with fatty infiltration of the liver. 23. Fatty pancreatic atrophy. 24. History of obesity, status post gastric bypass surgery. 25. Advanced right compartmental osteoarthritis of both knees with left suprasellar bursa calcification. 26. 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 27. Left axis deviation. 28. Left ventricular ejection fraction of 54%. 29. Mildly dilated left atrium and trace tricuspid regurgitation. 30. History of insulin-requiring diabetes mellitus. 31. History of hyperlipidemia, diabetic neuropathy. 32. History of anxiety and depression. 1. Syncope with history of recurrent syncope, etiology undetermined. 2. Questionable vasovagal syncope. 3. Normocytic anemia. 4. Mildly elevated erythrocyte sedimentation rate. 5. Mildly elevated D-dimer. 6. Elevated AST. 7. History of recent laparoscopic abdominal hysterectomy with history of endometrial carcinoma as per patient. 8. History of gastric bypass surgery in 12/2017. 9. History of obesity. 10. History of hypertension, insulin-requiring diabetes mellitus, history of diabetic neuropathy, history of hypertension and hyperlipidemia. 1. Syncopal episodes times two to four. 2. Abdominal pain. 3. Dizziness. 4. Right hip and knee pain. 5. Status post bariatric surgery in 12/2017. 6. Elevated D-dimer, etiology undetermined. 7. Status post fall. 8. Abdominal pain, hip pain, right lower extremity pain, secondary to fall versus contusion. 9. Degenerative joint disease of the knees. 10. Hepatic steatosis with fatty infiltration of the liver. 11. Postoperative changes of the gastric bypass and bariatric surgery. 12. Degenerative joint disease of the lumbar spine. 13. Hysterectomy with postsurgical changes. 14. Status post cholecystectomy. 15. Right parietal region chronic ossific density. 16. Questionable left axis deviation. 17. Questionable age indeterminate inferior infarct. 18. Recurrent syncopal episode, etiology undetermined. 19. History of gastritis, status post gastric bypass surgery. 20. Diabetic neuropathy. 21. Insulin-requiring diabetes mellitus. 22. Questionable depression. 23. History of hyperlipidemia. 24. Hypertension. 25. Lymphocytosis. 26. Hypokalemia. Plan at this time, the patient has been ordered repeat chemistries, LFT, magnesium, phosphorus. Repeat urine culture has been again ordered today. Current consultation: Cardiology, Neurology. The patient has been ordered a flow cytometry, which is still pending. Current medications: IV fluid half normal saline at 80 mL an hour, Carafate 1 g three times a day, aspirin 81 mg daily, Humalog medium dose sliding scale coverage, Lamictal 100 mg daily, Lipitor 40 mg daily, Lyrica 225 mg twice a day, cefepime 1 g IV every 8, Mobic 15 mg daily, Protonix 40 mg daily, Prozac 40 mg daily, Tylenol 650 p.o. suppository every 6 p.r.n., Zestril 20 mg daily, Zofran 4 mg IV every 4 p.r.n. The patient has been ordered transvaginal ultrasound for evaluation of recurrent UTI, incentive spirometry, oxygen 2 L. Consistent carbohydrate diet, out of bed, DANICA stockings, SCDs, physical therapy, occupational therapy ordered. The patient is seen by physical therapist today. The patient declined physical therapy today. The patient is seen by physical therapy yesterday. Recommend continue PT and discharged home. At present, the patient will be continued on the above therapeutic intervention. The patient updated about her condition, diagnoses, test results, recommendation at length. All questions concerned answered, which she acknowledged and understand. Dictated and electronically signed, not read. Dustin Menendez MD [facility]
[2018-08-14] MEDS: Sodium Chloride 0.45% 1,000 ML IV SCH ×2 (02:30→22:41)
[2018-08-14] MEDS: Pantoprazole 40 mg EC Tab PO SCH (05:41)
[2018-08-14] MEDS: Cefepime 1gm in NS 100ml 1 GM/100 ML BAG IVPB SCH ×3 (05:42→22:40)
--- NOTE | 2018-08-14 07:39 | PN ---
DATE: 08/12/2018 LOCATION: The patient is seen in room 572, bed #1. SUBJECTIVE: The patient is out of bed to chair, ambulating independently. Overnight nurses' notes were reviewed. The patient was up and about. The patient was found to be alert, awake, and oriented x3. Has episodic complaints of abdominal pain and lower abdominal pain, which appears to be the surgical site pain. The patient has been independent and out of bed to chair. PHYSICAL EXAMINATION: VITAL SIGNS: T-max is 98.1. Heart rate 76, 67, 78. Blood pressure in the last 12 to 24 hours 122/76, 144/94, respirations 18, O2 sat 98%. HEENT: Head examination: Normocephalic, atraumatic. HEENT: Examination shows pink conjunctivae. Anicteric sclerae. Dry oral mucosa. NECK: No neck rigidity. CHEST: Kyphosis. LUNGS: Show no crackles, rales, or wheezing. ABDOMEN: Soft. Positive bowel sounds, positive multiple laparoscopic surgical scars noted. GENITALIA: Female. RECTAL: Examination is deferred. EXTREMITIES: Show no pitting edema, no calf numbness, no Homans' signs. NEUROLOGIC: The patient is totally awake, alert, oriented x3. Cranial nerves II through XII intact. Gait examination is independent without any deficit. MUSCULOSKELETAL: Examination shows a body mass index of 36. PSYCHIATRIC: Examination is positive for history of anxiety and depression. DIAGNOSTICS: On 08/12/2018, hemoglobin and hematocrit 11.5 and 36, platelets are normal. Lymphocytosis is noted. ESR is 26, D-dimer 265. Fingerstick blood sugar 135, 144, 103, 99, 112, and 90. Sodium 137, potassium 3.6, chloride 105, CO2 29, anion gap 7, BUN 8, creatinine 0.6, GFR greater than 60, glucose 103, hemoglobin A1c 5.9. Fructosamine is low at 214, calcium 9.2, phosphorus 5. LFT shows AST of 50. All troponin three sets are negative. Cholesterol is within normal limits. Potassium is low normal. Urine cultures are growing Gram-negative skip 50-100,000, identification and sensitivity pending. Carotid ultrasound; MRI, MRA of the brain reviewed. IMPRESSION: 1. Syncope, etiology undetermined, probably vasovagal secondary to sleep deprivation and poor hydration. 2. Possible hypoglycemia. 3. Status post bariatric surgery. 4. Status post abdominal hysterectomy. 5. History of endometrial carcinoma. 6. Transient hypotension. 7. Mild normocytic anemia with lymphocytosis. 8. Mildly elevated erythrocyte sedimentation rate. 9. Elevated D-dimer. 10. Mild hyperphosphatemia. 11. Elevated AST, etiology undetermined. 12. Well-controlled insulin-requiring diabetes mellitus with hemoglobin A1c of 5.9 and fructosamine of 214. 13. Elevated C-reactive protein of greater than 3. 14. Escherichia coli. 15. Gram-negative skip, urinary tract infection with proteinuria, ketonuria, microscopic hematuria, and questionable and possible nephrolithiasis with calcium oxalate crystal. 16. Bilateral internal carotid artery 20%-39% stenosis. 17. Gram-negative skip, urinary tract infection. 18. Postoperative changes related to gastric surgery and cholecystectomy. 19. Multilevel lumbar spine degenerative disk disease with facet joint arthropathy. 20. Advanced osteoarthritis of both hips with bilateral sacroiliac joint arthritis. 21. Postsurgical postoperative abdominal pain. 22. Hepatic steatosis with fatty infiltration of the liver. 23. Fatty pancreatic atrophy. 24. History of obesity, status post gastric bypass surgery. 25. Advanced right compartmental osteoarthritis of both knees with left suprasellar bursa calcification. 26. 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 27. Left axis deviation. 28. Left ventricular ejection fraction of 54%. 29. Mildly dilated left atrium and trace tricuspid regurgitation. 30. History of insulin-requiring diabetes mellitus. 31. History of hyperlipidemia, diabetic neuropathy. 32. History of anxiety and depression. 1. Syncope with history of recurrent syncope, etiology undetermined. 2. Questionable vasovagal syncope. 3. Normocytic anemia. 4. Mildly elevated erythrocyte sedimentation rate. 5. Mildly elevated D-dimer. 6. Elevated AST. 7. History of recent laparoscopic abdominal hysterectomy with history of endometrial carcinoma as per patient. 8. History of gastric bypass surgery in 12/2017. 9. History of obesity. 10. History of hypertension, insulin-requiring diabetes mellitus, history of diabetic neuropathy, history of hypertension and hyperlipidemia. 1. Syncopal episodes times two to four. 2. Abdominal pain. 3. Dizziness. 4. Right hip and knee pain. 5. Status post bariatric surgery in 12/2017. 6. Elevated D-dimer, etiology undetermined. 7. Status post fall. 8. Abdominal pain, hip pain, right lower extremity pain, secondary to fall versus contusion. 9. Degenerative joint disease of the knees. 10. Hepatic steatosis with fatty infiltration of the liver. 11. Postoperative changes of the gastric bypass and bariatric surgery. 12. Degenerative joint disease of the lumbar spine. 13. Hysterectomy with postsurgical changes. 14. Status post cholecystectomy. 15. Right parietal region chronic ossific density. 16. Questionable left axis deviation. 17. Questionable age indeterminate inferior infarct. 18. Recurrent syncopal episode, etiology undetermined. 19. History of gastritis, status post gastric bypass surgery. 20. Diabetic neuropathy. 21. Insulin-requiring diabetes mellitus. 22. Questionable depression. 23. History of hyperlipidemia. 24. Hypertension. 25. Lymphocytosis. 26. Hypokalemia. PLAN: At this time, the patient has been ordered repeat CMP, LFT, magnesium, and phosphorus. Repeat urine culture results are pending. Current consultation: Cardiology, Neurology. The patient's case referred for diabetic education. Flow cytometry ordered. The patient is still on IV fluid half-normal saline at 80 mL an hour, Carafate 1 g three times a day, Colace 100 mg three times a day, Ecotrin 81 mg daily, Humalog medium dose sliding scale coverage before meals. The patient has been given a dose of potassium 40 mEq for low normal potassium. The patient is on Lamictal 100 mg daily, Lipitor 40 mg daily, Lovenox 40 mg subcu daily for deep vein thrombosis prophylaxis, Lyrica 225 mg twice a day, cefepime 1 g IV every 8 hours, Mobic 15 mg daily, Protonix 40 mg daily, Prozac 40 mg daily Tylenol p.r.n., Zestril 20 mg daily, Zofran 4 mg IV every 4 hours p.r.n. Incentive spirometry, oxygen 2 liters. DANICA pitt, PIYUSHs, out of bed. Occupational therapy, physical therapy as ordered. The patient has been seen by physical therapist. Their recommendation was to continue physical therapy. At present, the patient will be continued on the above therapeutic intervention. The patient has been updated about her condition, diagnosis, treatment plan, management plan at length, which she acknowledged and understands. Dictated and electronically signed, not read. Dustin Menendez MD [facility] # [id number] MTDD
[2018-08-14 07:49] LABS: ALB/GLOB RATIO 0.9 (1.1-1.8); ALBUMIN 2.9 g/dL (3.0-4.8); ALT/SGPT 42 U/L (7-56); AST/SGOT 43 U/L (14-36); BILIRUBIN,DIRECT 0.2 mg/dL (0.0-0.4); BLOOD UREA NITROGEN 21 mg/dL (7-21); CALCIUM 8.8 mg/dL (8.4-10.5); GFR NON-AFRICAN AMERICAN > 60
[2018-08-14] MEDS: Insulin Lispro (humaLOG) MEDIUM Coverage SC SCH ×3 (07:54→17:32)
[2018-08-14] MEDS: Magnesium Sulfate 2 gm/50 ml 2 GM/50 ML BAG IVPB SCH ×2 (11:00→13:21)
[2018-08-14] MEDS ORDERED: Magnesium Citrate Oral SOL (300 ml) PO ONE (12:00)
--- NOTE | 2018-08-14 12:48 | US ---
Indication: HX ENOMETRIAL CA/UTI Comparison: CT of the abdomen pelvis with IV contrast performed 08/10/18 Technique: Transabdominal pelvic sonogram. Findings: The patient is status post total hysterectomy and bilateral oophorectomy. No gross abnormality is seen in the pelvis. No mass or free fluid is identified. Impression: Status post hysterectomy and bilateral oophorectomy. No gross abnormality detected in the pelvis.
[2018-08-14 14:51] VITALS: O2SAT 100
--- NOTE | 2018-08-14 21:40 | PN ---
DATE: 08/14/2018 SUBJECTIVE: The patient is seen in room 572, bed 1. The patient is seen sitting up in the bed. OBJECTIVE: VITAL SIGNS: T max is 97.8, heart rate is 68, blood pressure 115/79, respirations 20, and O2 sat is 98-100%. HEENT: The patient's head examination normocephalic and atraumatic. HEENT examination shows pinkish pale conjunctivae. Anicteric sclerae. No oropharyngeal lesion. NECK: No neck rigidity. CHEST: Kyphosis. LUNGS: Shows no audible rales, crackles or wheezing. CARDIOVASCULAR: S1 and S2, regular rhythm. No audible murmur, gallop or rub. ABDOMEN: Soft. Positive bowel sounds. Positive suprapubic tenderness and voluntary guarding. No rebound tenderness. GENITALIA: Female. RECTAL: Deferred. EXTREMITIES: Shows no pitting edema. No calf tenderness. No Homans' sign. NEUROLOGIC: The patient is alert, awake, oriented x3, is able to move upper and lower extremity without assistance. Gait examination is independent. VASCULAR: Palpable pulses. Plantars are downward. DTRs at 2+. DIAGNOSTIC DATA: On 08/14/2018; sodium 138, potassium 4.3, chloride 109, CO2 of 24, anion gap 9, BUN 21, creatinine 0.9, GFR greater than 60, and glucose 255. Calcium 8.8, phosphorus 3.4, magnesium 1.6, AST 43, total protein 6.1, and albumin 2.9. Urine cultures 08/10/2018 and 08/11/2018, Proteus mirabilis. The patient's transvaginal ultrasound was done yesterday, which shows status post total hysterectomy and bilateral oophorectomy, no abnormalities noted in the pelvic. No masses or free fluid noted. IMPRESSION: 1. Syncope, etiology undetermined versus vasovagal syncope. 2. Proteus mirabilis urinary tract infection. 3. History of hypertension. 4. Normocytic anemia. 5. Lymphocytosis. 6. Mildly elevated erythrocyte sedimentation rate. 7. Elevated D-dimer, etiology undetermined. 8. Well-controlled insulin-requiring diabetes mellitus with hemoglobin A1c of 5.9. 9. Mild transaminitis. 10. Elevated C-reactive protein of 3.34. 11. Proteinuria, ketonuria, and microscopic hematuria. 12. Enlarged partially empty sella. 13. Status post gastric bypass and cholecystectomy. 14. Multilevel degenerative joint disease and disk disease of the lumbar spine and facet joint degenerative arthropathy. 15. Advanced osteoarthritis of both hips. 16. Left ventricular ejection fraction of 54%. 17. Mildly dilated left atrium. 18. Deconditioning. 19. Obesity with elevated body mass index. 20. Status post total hysterectomy and bilateral oophorectomy. 21. Constipation. 22. Diabetic neuropathy. 23. History of anxiety and depression. 1. Syncope, etiology undetermined versus vasovagal syncope. 2. Transient hypotension. 3. Proteus mirabilis and gram-negative persistent urinary tract infection. 4. Normocytic anemia with lymphocytosis. 5. Elevated erythrocyte sedimentation rate. 6. Elevated D-dimer. 7. Well-controlled insulin-requiring diabetes mellitus with hemoglobin A1c of 5.9 and fructosamine of 214. 8. Elevated C-reactive protein of 3.3. 9. Proteus mirabilis and gram-negative skip urinary tract infection with proteinuria, microscopic hematuria, ketonuria, bacteriuria and possible nephrolithiasis with calcium oxalate crystals in the urine. 10. Bilateral 20-39% internal carotid artery stenosis. 11. Left axis deviation. 12. Left ventricular ejection fraction of 54%. 13. Multilevel degenerative disk disease and joint disease of the lumbar spine with multilevel facet joint degenerative joint disease. 14. Advanced degenerative joint disease of both hips with articular cortical sclerosis and osteophyte development and subchondral cyst formation with degenerative joint disease of the sacroiliac joint. 15. Advanced tricompartmental ortho arthritis of both knees with left suprapatellar bursa calcification. 16. Syncope, etiology undetermined. 17. Most likely vasovagal syncope, probably secondary to sleep deprivation and poor hydration. 1. Syncope, etiology undetermined, probably vasovagal secondary to sleep deprivation and poor hydration. 2. Possible hypoglycemia. 3. Status post bariatric surgery. 4. Status post abdominal hysterectomy. 5. History of endometrial carcinoma. 6. Transient hypotension. 7. Mild normocytic anemia with lymphocytosis. 8. Mildly elevated erythrocyte sedimentation rate. 9. Elevated D-dimer. 10. Mild hyperphosphatemia. 11. Elevated AST, etiology undetermined. 12. Well-controlled insulin-requiring diabetes mellitus with hemoglobin A1c of 5.9 and fructosamine of 214. 13. Elevated C-reactive protein of greater than 3. 14. Escherichia coli. 15. Gram-negative skip, urinary tract infection with proteinuria, ketonuria, microscopic hematuria, and questionable and possible nephrolithiasis with calcium oxalate crystal. 16. Bilateral internal carotid artery 20%-39% stenosis. 17. Gram-negative skip, urinary tract infection. 18. Postoperative changes related to gastric surgery and cholecystectomy. 19. Multilevel lumbar spine degenerative disk disease with facet joint arthropathy. 20. Advanced osteoarthritis of both hips with bilateral sacroiliac joint arthritis. 21. Postsurgical postoperative abdominal pain. 22. Hepatic steatosis with fatty infiltration of the liver. 23. Fatty pancreatic atrophy. 24. History of obesity, status post gastric bypass surgery. 25. Advanced right compartmental osteoarthritis of both knees with left suprasellar bursa calcification. 26. 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 27. Left axis deviation. 28. Left ventricular ejection fraction of 54%. 29. Mildly dilated left atrium and trace tricuspid regurgitation. 30. History of insulin-requiring diabetes mellitus. 31. History of hyperlipidemia, diabetic neuropathy. 32. History of anxiety and depression. 1. Syncope with history of recurrent syncope, etiology undetermined. 2. Questionable vasovagal syncope. 3. Normocytic anemia. 4. Mildly elevated erythrocyte sedimentation rate. 5. Mildly elevated D-dimer. 6. Elevated AST. 7. History of recent laparoscopic abdominal hysterectomy with history of endometrial carcinoma as per patient. 8. History of gastric bypass surgery in 12/2017. 9. History of obesity. 10. History of hypertension, insulin-requiring diabetes mellitus, history of diabetic neuropathy, history of hypertension and hyperlipidemia. 1. Syncopal episodes times two to four. 2. Abdominal pain. 3. Dizziness. 4. Right hip and knee pain. 5. Status post bariatric surgery in 12/2017. 6. Elevated D-dimer, etiology undetermined. 7. Status post fall. 8. Abdominal pain, hip pain, right lower extremity pain, secondary to fall versus contusion. 9. Degenerative joint disease of the knees. 10. Hepatic steatosis with fatty infiltration of the liver. 11. Postoperative changes of the gastric bypass and bariatric surgery. 12. Degenerative joint disease of the lumbar spine. 13. Hysterectomy with postsurgical changes. 14. Status post cholecystectomy. 15. Right parietal region chronic ossific density. 16. Questionable left axis deviation. 17. Questionable age indeterminate inferior infarct. 18. Recurrent syncopal episode, etiology undetermined. 19. History of gastritis, status post gastric bypass surgery. 20. Diabetic neuropathy. 21. Insulin-requiring diabetes mellitus. 22. Questionable depression. 23. History of hyperlipidemia. 24. Hypertension. 25. Lymphocytosis. 26. Hypokalemia. PLAN: At present, the patient will be continued on the above therapeutic intervention. CURRENT MEDICATIONS: 1. IV fluids half normal saline at 80 mL an hour. 2. Carafate 1 g three times a day. 3. The patient is given a dose of magnesium citrate today because of constipation. 4. The patient is on aspirin 81 mg daily. 5. Humalog medium dose sliding scale coverage. 6. Lamictal 100 mg daily. 7. Lipitor 40 mg daily. 8. Lyrica 225 mg twice a day. 9. Maxipime 1 g IV every 8 hours. 10. Mobic 15 mg daily. 11. Protonix 40 mg daily. 12. Prozac 40 mg daily. 13. Zestril 20 mg daily. 14. Zofran 4 mg IV every 4 hours p.r.n. The patient has been ordered out of bed to chair, DANICA stockings, ambulation, and gait training ordered. The patient has been seen by physical therapist. The patient declined physical therapy. If the patient stays stable within the next 24 to 48 hours, the patient will be cleared for discharge. Dictated and electronically signed, not read. Dustin Menendez MD MTDDavid
[2018-08-15] MEDS: Cefepime 1gm in NS 100ml 1 GM/100 ML BAG IVPB SCH (06:54)
[2018-08-15] MEDS: Pantoprazole 40 mg EC Tab PO SCH (06:56)
[2018-08-15] MEDS: Insulin Lispro (humaLOG) MEDIUM Coverage SC SCH ×2 (08:24→12:11)
[2018-08-15 08:40] VITALS: TEMP 97.8
[2018-08-15 09:41] VITALS: BP 130/86; PULSE 72
--- NOTE | 2018-08-15 13:48 | DS ---
HISTORY OF PRESENT ILLNESS: The patient is seen in room 572, bed 1. The patient is out of bed to chair. Patient is alert, awake, responsive. Patient is complaining of constipation but refusing the medication for constipation. PHYSICAL EXAMINATION: VITAL SIGNS: T-max 97.8; pulse 72-76; blood pressure 130/86, 132/92; respiration 20; O2 sat 100 percent. GENERAL: The patient is seen sitting up in the bed. Head examination normocephalic, atraumatic. HEENT examination shows pink conjunctivae. Anicteric sclerae. No oropharyngeal lesion. NECK: No neck rigidity. CHEST: Kyphosis. LUNGS: Show no audible crackle, rales or wheezing. CARDIOVASCULAR: S1, S2, regular rhythm. No audible murmur, gallop or rub. ABDOMEN: Soft. Positive bowel sounds. Multiple surgical scars of the abdominal area noted. Questionable mild voluntary guarding noted of the lower abdomen. Genitalia: Female. Rectal examination is deferred. EXTREMITIES: Extremity shows no pitting edema, no calf tenderness, no Homans sign. NEUROLOGICAL: The patient is alert, awake, oriented x3, is able to ambulate independently. VASCULAR: Palpable pulses. Cranial nerves II-XII are grossly intact. are dry. MUSCULOSKELETAL: Body mass index of 36. DIAGNOSTICS: None from 08/15/2018. Fingerstick blood sugar 101, 81, 115, 135, 104, 255. FINAL IMPRESSION, PLAN AND DISCHARGE DIAGNOSES: 1. Syncope versus vasovagal syncope probably secondary to dehydration and sleep deprivation. 2. Status post total hysterectomy and bilateral oophorectomy. 3. History of endometrial carcinoma. 4. Status post gastric bypass surgery. 5. History of hypertension. 6. Mild normocytic anemia with lymphocytosis. 7. Mildly elevated erythrocyte sedimentation rate of 26. 8. Elevated D-dimer of 265. 9. Insulin-requiring well-controlled diabetes mellitus with hemoglobin A1c of 5.9 and fructosamine of 214. 10. Mild hypoalbuminemia. 11. Mild transaminitis. 12. Elevated C-reactive protein. 13. Proteus mirabilis urinary tract infection with proteinuria, ketonuria, microscopic hematuria, bacteriuria and positive calcium oxalate crystal. 14. Morbid obesity with elevated body mass index of 36. 15. Degenerative joint disease of the lumbar spine. 16. Bilateral hip osteoarthritis. 17. Bilateral knee osteoarthritis. 1. Syncope, etiology undetermined versus vasovagal syncope. 2. Proteus mirabilis urinary tract infection. 3. History of hypertension. 4. Normocytic anemia. 5. Lymphocytosis. 6. Mildly elevated erythrocyte sedimentation rate. 7. Elevated D-dimer, etiology undetermined. 8. Well-controlled insulin-requiring diabetes mellitus with hemoglobin A1c of 5.9. 9. Mild transaminitis. 10. Elevated C-reactive protein of 3.34. 11. Proteinuria, ketonuria, and microscopic hematuria. 12. Enlarged partially empty sella. 13. Status post gastric bypass and cholecystectomy. 14. Multilevel degenerative joint disease and disk disease of the lumbar spine and facet joint degenerative arthropathy. 15. Advanced osteoarthritis of both hips. 16. Left ventricular ejection fraction of 54%. 17. Mildly dilated left atrium. 18. Deconditioning. 19. Obesity with elevated body mass index. 20. Status post total hysterectomy and bilateral oophorectomy. 21. Constipation. 22. Diabetic neuropathy. 23. History of anxiety and depression. 1. Syncope, etiology undetermined versus vasovagal syncope. 2. Transient hypotension. 3. Proteus mirabilis and gram-negative persistent urinary tract infection. 4. Normocytic anemia with lymphocytosis. 5. Elevated erythrocyte sedimentation rate. 6. Elevated D-dimer. 7. Well-controlled insulin-requiring diabetes mellitus with hemoglobin A1c of 5.9 and fructosamine of 214. 8. Elevated C-reactive protein of 3.3. 9. Proteus mirabilis and gram-negative skip urinary tract infection with proteinuria, microscopic hematuria, ketonuria, bacteriuria and possible nephrolithiasis with calcium oxalate crystals in the urine. 10. Bilateral 20-39% internal carotid artery stenosis. 11. Left axis deviation. 12. Left ventricular ejection fraction of 54%. 13. Multilevel degenerative disk disease and joint disease of the lumbar spine with multilevel facet joint degenerative joint disease. 14. Advanced degenerative joint disease of both hips with articular cortical sclerosis and osteophyte development and subchondral cyst formation with degenerative joint disease of the sacroiliac joint. 15. Advanced tricompartmental ortho arthritis of both knees with left suprapatellar bursa calcification. 16. Syncope, etiology undetermined. 17. Most likely vasovagal syncope, probably secondary to sleep deprivation and poor hydration. 1. Syncope, etiology undetermined, probably vasovagal secondary to sleep deprivation and poor hydration. 2. Possible hypoglycemia. 3. Status post bariatric surgery. 4. Status post abdominal hysterectomy. 5. History of endometrial carcinoma. 6. Transient hypotension. 7. Mild normocytic anemia with lymphocytosis. 8. Mildly elevated erythrocyte sedimentation rate. 9. Elevated D-dimer. 10. Mild hyperphosphatemia. 11. Elevated AST, etiology undetermined. 12. Well-controlled insulin-requiring diabetes mellitus with hemoglobin A1c of 5.9 and fructosamine of 214. 13. Elevated C-reactive protein of greater than 3. 14. Escherichia coli. 15. Gram-negative skip, urinary tract infection with proteinuria, ketonuria, microscopic hematuria, and questionable and possible nephrolithiasis with calcium oxalate crystal. 16. Bilateral internal carotid artery 20%-39% stenosis. 17. Gram-negative skip, urinary tract infection. 18. Postoperative changes related to gastric surgery and cholecystectomy. 19. Multilevel lumbar spine degenerative disk disease with facet joint arthropathy. 20. Advanced osteoarthritis of both hips with bilateral sacroiliac joint arthritis. 21. Postsurgical postoperative abdominal pain. 22. Hepatic steatosis with fatty infiltration of the liver. 23. Fatty pancreatic atrophy. 24. History of obesity, status post gastric bypass surgery. 25. Advanced right compartmental osteoarthritis of both knees with left suprasellar bursa calcification. 26. 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 27. Left axis deviation. 28. Left ventricular ejection fraction of 54%. 29. Mildly dilated left atrium and trace tricuspid regurgitation. 30. History of insulin-requiring diabetes mellitus. 31. History of hyperlipidemia, diabetic neuropathy. 32. History of anxiety and depression. 1. Syncope with history of recurrent syncope, etiology undetermined. 2. Questionable vasovagal syncope. 3. Normocytic anemia. 4. Mildly elevated erythrocyte sedimentation rate. 5. Mildly elevated D-dimer. 6. Elevated AST. 7. History of recent laparoscopic abdominal hysterectomy with history of endometrial carcinoma as per patient. 8. History of gastric bypass surgery in 12/2017. 9. History of obesity. 10. History of hypertension, insulin-requiring diabetes mellitus, history of diabetic neuropathy, history of hypertension and hyperlipidemia. 1. Syncopal episodes times two to four. 2. Abdominal pain. 3. Dizziness. 4. Right hip and knee pain. 5. Status post bariatric surgery in 12/2017. 6. Elevated D-dimer, etiology undetermined. 7. Status post fall. 8. Abdominal pain, hip pain, right lower extremity pain, secondary to fall versus contusion. 9. Degenerative joint disease of the knees. 10. Hepatic steatosis with fatty infiltration of the liver. 11. Postoperative changes of the gastric bypass and bariatric surgery. 12. Degenerative joint disease of the lumbar spine. 13. Hysterectomy with postsurgical changes. 14. Status post cholecystectomy. 15. Right parietal region chronic ossific density. 16. Questionable left axis deviation. 17. Questionable age indeterminate inferior infarct. 18. Recurrent syncopal episode, etiology undetermined. 19. History of gastritis, status post gastric bypass surgery. 20. Diabetic neuropathy. 21. Insulin-requiring diabetes mellitus. 22. Questionable depression. 23. History of hyperlipidemia. 24. Hypertension. 25. Lymphocytosis. 26. Hypokalemia. PLAN: At this time, the patient has been cleared by all subspecialty for discharge. The patient will be cleared for discharge today. The patient is refusing medications for constipation. The patient's discharge medications are Tylenol 650 mg oral as needed, Ventolin as needed, Ecotrin 81 mg daily, Lipitor 40 mg daily, ciprofloxacin 500 twice a day, Nexium 40 mg daily, Prozac 20/40 mg daily. Patient is to resume her Basaglar Kwikpen insulin which she is taking at home and Apidra insulin at home. The patient is to resume her Lamictal 100 mg daily, Zestril 20 mg daily, Mobic 15 mg daily, misoprostol 200 mcg four times a day, Lyrica 225 twice a day and Carafate 1 g three times a day. The patient's oral hypoglycemics are held at this time because of well-controlled diabetes mellitus. During this hospitalization, the patient was extensively explained about the details of her medical condition, diagnosis, treatment plan, management plan was extensively discussed with the patient at length and all questions concerned answered. The patient was to be discharged home. The patient is advised to follow up her PMD, Cardiology and Neurology in [place]. The patient's discharge medications are as per updated ambulatory orders plus new script. The patient may follow up with Dr. Menendez within 1 week if the patient is still in [place]. The patient was advised no alcohol, no smoking, no driving. The patient was advised to release all medical records from this hospitalization to her primary care physician in [place] and her salesperson women's dresses and neurologist in [place]. Time spent in the discharge process 45 minutes. Dictated and electronically signed, not read. Dustin Menendez MD MTDDavid
== END 2018-08-15 15:20 | disposition home or self-care (01) | DRG 422 ==
LOC: ED 15:32 → ERH 19:58 → 5RSO 21:51 → OBSVTOIN 08-12 11:06
PROVIDERS: ADMIT Internal Medicine; ATTEND Internal Medicine
DX: E86.0 Dehydration (principal); E11.40 Type 2 diabetes mellitus with diabetic neuropathy, unspecified; E11.649 Type 2 diabetes mellitus with hypoglycemia without coma; K86.89 Other specified diseases of pancreas; E66.01 Morbid (severe) obesity due to excess calories; D64.9 Anemia, unspecified; Z72.820 Sleep deprivation; D72.820 Lymphocytosis (symptomatic); Z68.36 Body mass index [BMI] 36.0-36.9, adult; E78.00 Pure hypercholesterolemia, unspecified; E78.5 Hyperlipidemia, unspecified; E83.39 Other disorders of phosphorus metabolism; E87.6 Hypokalemia; Z85.42 Personal history of malignant neoplasm of other parts of uterus; Z90.49 Acquired absence of other specified parts of digestive tract; Z90.710 Acquired absence of both cervix and uterus; Z98.84 Bariatric surgery status; Z79.899 Other long term (current) drug therapy; Z79.4 Long term (current) use of insulin; Z79.1 Long term (current) use of non-steroidal anti-inflammatories (NSAID); R79.1 Abnormal coagulation profile; R31.29 Other microscopic hematuria; N39.0 Urinary tract infection, site not specified; B96.4 Proteus (mirabilis) (morganii) as the cause of diseases classified elsewhere; B96.89 Other specified bacterial agents as the cause of diseases classified elsewhere; I10 Essential (primary) hypertension; I65.29 Occlusion and stenosis of unspecified carotid artery; K59.00 Constipation, unspecified; K76.0 Fatty (change of) liver, not elsewhere classified; M16.0 Bilateral primary osteoarthritis of hip; M17.0 Bilateral primary osteoarthritis of knee; M46.90 Unspecified inflammatory spondylopathy, site unspecified; M47.816 Spondylosis without myelopathy or radiculopathy, lumbar region; M47.818 Spondylosis without myelopathy or radiculopathy, sacral and sacrococcygeal region; M51.36 Other intervertebral disc degeneration, lumbar region; R79.82 Elevated C-reactive protein (CRP)